=== PATIENT | male | born 1970 | race Caucasian/White ===

== ENCOUNTER 2025-08-13 09:26 | Emergency (ER) | payer BC ==
[2025-08-13 09:37] VITALS: TEMP 98.7
[2025-08-13] MEDS: TORAdol 30 mg Injection IV ONE (09:59)
[2025-08-13] MEDS ORDERED: TORAdol 30 mg Injection ONE (09:59)
[2025-08-13 10:04] LABS: BASOPHIL % 0.6 % (0.2-1.2); Basophil (Absolute #) 0.06 x10^3/uL (0.01-0.08); Eosinophil (Absolute #) 0.53 x10^3/uL (0.04-0.54); Hematocrit 47.2 % (40.1-51.0); Hemoglobin 15.8 g/dL (13.7-17.5); IMMATURE GRAN # 0.05 x10^3u/L (0.001-0.031); IMMATURE GRAN % 0.5 % (0.001-0.429); Lymphocyte (Absolute #) 2.62 x10^3/uL (1.32-3.57); Mean Corpuscular Hemoglobin 27.0 pg (25.7-32.2); Mean Corpuscular Hgb Concent. 33.5 g/dL (32.3-36.5); Monocyte (Absolute #) 0.69 x10^3/uL (0.30-0.82); NUCLEATED RBC # 0.00 x10^3u/L (0.00-0.012); NUCLEATED RBC % 0.0 % (0.00-0.2); Platelet Count 309 x10^3/uL (163-337); Red Blood Count 5.86 x10^6/uL (4.63-6.08); White Blood Count 9.6 x10^3/uL (4.23-9.07)
--- NOTE | 2025-08-13 10:12 | ERPHSYRPT ---
- History of Present Illness Time Seen by Provider: 08/13/25 09:31 Source: patient Exam Limitations: no limitations Patient Subjective Stated Complaint: Pt states "About a week ago my groin started to hurt and I went to [facility] today and they sent me down here. When I raise my arms, I get a bulge around my belly button and my testicles feel like they are raising up, especially my right side." Triage Nursing Assessment: pt presented alert and oriented X 3, skin pwd. Pt ambulates with a slight limp. pt abdomen soft non tender, no apparent distress. Physician History: Patient is here with right testicle pain for approximately 1 week. No falls no trauma. Has never had any testicle pain before. Patient is circumcised. Patient states that when he lifts his arms above his head he also feels that he has some pain around his umbilical area. Patient states that he has never had any abdominal surgeries before. No previous issues. No known umbilical hernia. Patient originally seen at [facility] and sent over to emergency department for full evaluation. Patient is taking PO well. Same number of urinations and defecations. The patient has no signs of altered mental status, nuchal rigidity, signs of meningitis. The patient is up-to-date on all vaccinations. Allergies/Adverse Reactions: No Known Drug Allergies Allergy (Verified 05/14/15 11:26) Home Medications: Losartan Potassium [Cozaar] 25 mg PO DAILY 08/13/25 [History] Rosuvastatin Calcium 10 mg PO DAILY 08/13/25 [History] Hx Tetanus, Diphtheria Vaccination/Date Given: No (2014) Hx Influenza Vaccination/Date Given: No Hx Pneumococcal Vaccination/Date Given: No Immunizations Up to Date: No Travel Risk - International Travel Have you traveled outside of the country in past 3 weeks: No - Emerging Infectious Disease Are you exhibiting symptoms associated with any current EIDs: No - Past Medical History Pertinent Past Medical History: Yes Neurological History: No Pertinent History Cardiac History: No Pertinent History Respiratory History: No Pertinent History Endocrine Medical History: No Pertinent History Musculoskeletal History: Fractures - Past Surgical History Past Surgical History: Yes Musculoskeletal: Orthopedic Surgery - Social History Smoking Status: Never smoker Exposure to second hand smoke: No Drug Use: none - Social Determinants of Health Will the patient participate in the screening: Declined to provide - Nursing Vital Signs Nursing Vital Signs: Initial Vital Signs Temperature 98.7 F 08/13/25 09:32 Pulse Rate 75 08/13/25 09:32 Respiratory Rate 18 08/13/25 09:32 Blood Pressure 170/91 08/13/25 09:32 O2 Sat by Pulse Oximetry 97 08/13/25 09:32 Pain Scale Pain Intensity 0 - Physical Exam SpO2: 98 Comments: 08/13/25 10:09 Review of Systems Constitutional: Negative for fever. HENT: Negative for congestion. Respiratory: Negative for shortness of breath. Cardiovascular: Negative for chest pain. Gastrointestinal: Negative for abdominal pain. Genitourinary: Negative for dysuria. Musculoskeletal: Negative for back pain. Skin: Negative for rash. Neurological: Negative for headaches. Psychiatric/Behavioral: Negative for behavioral problems. All other systems reviewed and are negative. Physical Exam Vitals signs and nursing note reviewed. Constitutional: Appearance: Patient is well-developed. HENT: Head: Normocephalic and atraumatic. Eyes: Conjunctiva/sclera: Conjunctivae normal. Neck: Musculoskeletal: Normal range of motion. Trachea: No tracheal deviation. Cardiovascular: Rate and Rhythm: Normal rate. Heart sounds normal. Pulmonary: Effort: Pulmonary effort is normal. No respiratory distress. Abdominal: Palpations: Abdomen is soft. Musculoskeletal: General: No deformity. Skin: General: Skin is warm and dry. Neurological/ Psychiatric: Mental Status: Mental status, behavior, interaction with environment is appropriate for patient's age and condition Testicle exam chaperoned with bedside nurse, Jamal Testicular exam with normal lie, cremaster reflex intact, no significant erythema, or swelling appreciated. Patient has right testicular tenderness to palpation. No left testicular pain. Patient is circumcised. no appreciable inguinal hernia bilaterally. No rashes or lesions. No penile discharge. No blood at meatus. Ordered Tests: Active Orders 24 hr Category Date Time Status IV Insertion STAT Care 08/13/25 09:48 Completed ABDOMEN AND PELVIS W CONTRAST [CT] Stat Exams 08/13/25 09:48 Completed TESTICLE [US] Stat Exams 08/13/25 09:48 Completed CBC W DIFF Stat Lab 08/13/25 10:00 Completed CMP Stat Lab 08/13/25 10:00 Completed LIPASE Stat Lab 08/13/25 10:00 Completed UA W/RFX UR CULTURE Stat Lab 08/13/25 09:48 Completed Medication Summary Discontinued Medications Generic Name Dose Route Start Last Admin Trade Name Freq PRN Reason Stop Dose Admin Sodium Chloride 1,000 mls @ 999 mls/hr 08/13/25 09:48 08/13/25 11:01 Sodium Chloride 0.9% 1000 Ml IV 08/13/25 10:48 Infused .Q1H1M STA Infusion Sodium Chloride Confirm 08/13/25 09:59 Sodium Chloride 0.9% 1000 Ml Administered 08/13/25 10:00 Dose 1,000 mls @ ud .ROUTE .STK-MED ONE Ketorolac Tromethamine 30 mg 08/13/25 09:48 08/13/25 09:59 Ketorolac Tromethamine 30 Mg/Ml Inj IV 08/13/25 09:49 30 mg STAT ONE Administration Ketorolac Tromethamine Confirm 08/13/25 09:59 Ketorolac Tromethamine 30 Mg/Ml Inj Administered 08/13/25 10:00 Dose 30 mg .ROUTE .STK-MED ONE Lab/Rad Data: Laboratory Result Diagrams 08/13/25 10:00 08/13/25 10:00 Laboratory Results 08/13/25 08/13/25 08/13/25 Range/Units 10:00 10:00 09:48 WBC 9.6 H (4.23-9.07) x10^3/uL RBC 5.86 (4.63-6.08) x10^6/uL Hgb 15.8 (13.7-17.5) g/dL Hct 47.2 (40.1-51.0) % MCV 80.5 (79.0-92.2) fL MCH 27.0 (25.7-32.2) pg MCHC 33.5 (32.3-36.5) g/dL RDW 13.9 (11.6-14.4) % Plt Count 309 (163-337) x10^3/uL MPV 9.3 L (9.4-12.4) fL Gran % 58.9 (34.0-67.9) % Immature Gran % (Auto) 0.5 H (0.001-0.429) % Nucleat RBC Rel Count 0.0 (0.00-0.2) % Eos # (Auto) 0.53 (0.04-0.54) x10^3/uL Immature Gran # (Auto) 0.05 H (0.001-0.031) x10^3u/L Absolute Lymphs (auto) 2.62 (1.32-3.57) x10^3/uL Absolute Monos (auto) 0.69 (0.30-0.82) x10^3/uL Absolute Nucleated RBC 0.00 (0.00-0.012) x10^3u/L Lymphocytes % 27.3 (21.8-53.1) % Monocytes % 7.2 (5.3-12.2) % Eosinophils % 5.5 (0.8-7.0) % Basophils % 0.6 (0.2-1.2) % Absolute Granulocytes 5.66 H (1.78-5.38) x10^3/uL Basophils # 0.06 (0.01-0.08) x10^3/uL Sodium 138 (135-145) mmol/L Potassium 3.6 (3.5-5.1) mmol/L Chloride 102 (98-107) mmol/L Carbon Dioxide 24 (22-30) mmol/L Anion Gap 15.5 H (5-15) MEQ/L BUN 20 (9-20) mg/dL Creatinine 1.19 (0.66-1.25) mg/dL Estimated GFR 72.6 ML/MIN Glucose 140 H (74-106) mg/dL Calcium 10.4 H (8.4-10.2) mg/dL Total Bilirubin 0.80 (0.2-1.3) mg/dL AST 24 (17-59) U/L ALT 22 (0-50) U/L Alkaline Phosphatase 69 (38-126) U/L Serum Total Protein 8.6 H (6.3-8.2) g/dL Albumin 5.1 H (3.5-5.0) g/dL Lipase 65 (23-300) U/L Urine Color Yellow (Yellow) Urine Appearance Clear (Clear) Urine pH 6.5 (4.6-8.0) Ur Specific Patterson 1.020 (1.005-1.030) Urine Protein Negative (Negative) Urine Glucose (UA) Negative (Negative) mg/dL Urine Ketones Negative (Negative) Urine Blood Negative (Negative) Urine Nitrite Negative (Negative) Urine Bilirubin Negative (Negative) Urine Urobilinogen 0.2 (0.2) mg/dL Ur Leukocyte Esterase Negative (Negative) U Hyaline Cast (Auto) NONE SEEN (0-2) /LPF Urine Microscopic RBC 0-2 (0-5) /HPF Urine Microscopic WBC 0-2 (0-5) /HPF Ur Epithelial Cells None Seen (None Seen) /HPF Urine Bacteria None Seen (None Seen) /HPF Urine Culture Reflexed NO (NO) - Progress Progress: improved Progress Note: 08/13/25 10:12 Differential diagnosis includes kidney stone, compression fracture, infection, UTI, triple AAA, testicular torsion, scrotal hernia, umbilical hernia - basic labs including: CBC, lipase, CMP, UA - insert IV for symptom management - consider imaging: CT ab/pelvis or U/S Reevaluation Patient feels improved with medication. Labs demonstrate no leukocytosis. CT scan pending. 08/13/25 14:47 We did obtain an ultrasound of the patient's testicles given his right sided testicle pain. This demonstrated varicocele, epididymal cysts. However, no other acute torsion, scrotal hernia. I did discuss all this with the patient, he will follow-up with urology as an outpatient. CT scan demonstrated a umbilical hernia that was fat-containing. However no strangulation, labs otherwise negative. Patient likely should follow-up with the outpatient surgery center. I did discuss all this with him. He will follow-up with Dr. Sosa. Patient's other labs and findings are reassuring. No UTI. At this point, discharged home, return here sooner for any new or changing symptoms. Counseled pt/family regarding: lab results, diagnosis, need for follow-up, rad results - Departure Departure Disposition: Home Clinical Impression: Umbilical hernia, Right varicocele, Epididymal cyst Condition: Stable Critical Care Time: No Referrals: JM PACHECO MD [Primary Care Provider, [facility]] - Follow up/PCP as directed Instructions: Groin Strain (DC) Additional Instructions: Call for follow up and reexam on umbilical hernia [facility], Address: [address] [place] [address] [place] [address] call for follow up of varicoele and testicular cysts [facility] Address: [address] [facility] [place] [address]
[2025-08-13 10:19] LABS: Calcium 10.4 mg/dL (8.4-10.2); Carbon Dioxide 24.0 mmol/L (22-30); Creatinine 1 1.19 mg/dL (0.66-1.25); EST GLOMERULAR FILTRATION RATE 72.6 ML/MIN; Glucose 140.0 mg/dL (74-106); Potassium 3.6 mmol/L (3.5-5.1); SGOT/AST 24.0 U/L (17-59); SGPT/ALT 22.0 U/L (0-50); Total Protein 8.6 g/dL (6.3-8.2)
[2025-08-13 12:11] LABS: Glucose, Urine Negative (Negative); Protein,Urine Dip Negative (Negative); RBC 0-2 /HPF (0-5); WBC 0-2 /HPF (0-5)
[2025-08-13 12:21] VITALS: RESP 18
--- NOTE | 2025-08-13 12:43 | XRAY ---
Indication: Right testicular pain. Torsion. Two-dimensional testicular sonogram performed. Comparison: February 28, 2014 Both testicles homogeneous in echogenicity with normal color perfusion. Right testicle measures 5.0 x 2.5 x 4.0 cm and left measures 4.2 x 2.6 x 4.3 cm. No focal solid/cystic testicular mass. Left epididymis demonstrates a few cysts, largest 6 mm. Right epididymis demonstrates 4 mm cyst. Incidental mild right varicocele. No suspicious extratesticular mass. Impression: Mild right varicocele. Incidental new tiny bilateral epididymal cysts. Negative for testicular torsion. Comment: Preliminary report was given.
--- NOTE | 2025-08-13 12:55 | XRAY ---
CLINICAL HISTORY: umbilical herina COMPARISON: None. TECHNIQUE: Contrast-enhanced CT of the abdomen and pelvis was performed, with the following protocol: axial images with reconstructed coronal and sagittal images. Intravenous contrast was administered. One of the following dose reduction techniques was utilized for this exam: automated exposure control, adjustment of the mA and/or kV according to patient size, and use of iterative reconstruction. FINDINGS: Abdomen: Liver: Normal in size, shape, and fatty density. No focal lesions, cysts, or masses were identified. Hepatic vasculature and biliary ducts are unremarkable. Gallbladder and Biliary System: The gallbladder is normal in size and shape. No wall thickening, pericholecystic fluid, or gallstones were identified. The common bile duct is normal in caliber without dilation. Pancreas: Pancreatic head, body, and tail are visualized and appear normal in size and density. No pancreatic masses or calcifications were noted. The pancreatic duct is not dilated. Spleen: Mildly enlarged in size and of normal density, with tiny foci of calcification. No splenic lesions or masses were identified. Appendix: The appendix is normal in size without periappendiceal fat stranding and without an appendicolith. No evidence of appendiceal abscess or perforation. Kidneys and Adrenal Glands: Both kidneys are normal in size, shape, and position. Cortical thickness is within normal limits. No renal calculi or hydronephrosis. There is normal excretion in both ureters on delayed images. Adrenal glands are unremarkable with no evidence of masses or hyperplasia. Pelvis: Urinary Bladder: Normal in contour and wall thickness. No intraluminal lesions identified. Prostate: Enlarged in size, about 58 g. No focal lesions or masses are identified. Seminal Vesicles: Normal in size and appearance. No abnormalities noted. Peritoneal and Retroperitoneal Structures: No free fluid or abnormal fluid collections were identified within the abdomen or pelvis. A few reactive inguinal lymph nodes were noted. Bowel: Small umbilical fatty hernia, with a defect measuring 6 mm; no bowel herniation at the time of the scan. Multiple colonic diverticulae are present with mild pericolic fat haziness and mildly engorged vasa recta. The visualized bowel loops are normal in caliber and appearance. No evidence of bowel obstruction or wall thickening. Bones and Soft Tissues: Pelvic bones and soft tissues are unremarkable. No fractures or abnormal masses were identified. IMPRESSION: 1. Small umbilical fatty hernia containing only fat and no bowel herniation at the time of scan. 2. Colonic diverticulosis with mild pericolic fat stranding and mildly engorged vasa recta; however, no CT evidence of diverticulitis. 3. Mild splenomegaly with tiny calcified foci. 4. Enlarged prostate. Electronically Signed by: Michael Liang MD. (08/13/2025 12:53:37 EST)
[2025-08-13 13:45] VITALS: O2SAT 98
[2025-08-13 13:58] VITALS: BP 135/101; PULSE 86
== END 2025-08-13 13:58 | disposition home or self-care (01) ==
LOC: ED 09:26
DX: K42.9 Umbilical hernia without obstruction or gangrene (principal); I86.1 Scrotal varices; N50.3 Cyst of epididymis; N50.811 Right testicular pain; Z79.899 Other long term (current) drug therapy